=== PATIENT | male | born 1975 | race Caucasian/White ===

== ENCOUNTER → 2016-12-15 | Outpatient (CLI) | payer OTHER ==
--- NOTE | 2016-12-15 17:18 | US ---
EXAMINATION TYPE: US kidneys/renal and bladder DATE OF EXAM: 12/15/2016 COMPARISON: CT and US CLINICAL HISTORY: N20.0 Kidney Stone; Follow up per patient EXAM MEASUREMENTS: Right Kidney: 10.5 x 5.7 x 5.4 cm Left Kidney: 10.1 x 5.6 x 5.9 cm Post Void Residual Volume: 1.9 mL Right Kidney: multiple cortical cyst with largest at inferior pole = 2.5 x 2.6 x 2.5cm; upper pole hyperechoic focus with posterior shadowing = 0.6 x 0.4 x 0.6cm Left Kidney: mid inferior hyperechoic focus may be vessel wall calcification vs renal stone (0.7 x 0. 5 x 0.4cm); superior cortical cyst = 0.9 x 0.8 x 0.8cm; another hyperechoic focus is noted superior c ortex as parallel lines and may be vessel wall calcification. Bladder: wnl Bilateral Jets seen: Yes Normal Post Void Residual: Yes The 2.5 cm cyst in the lower pole of the right kidney has enlarged slightly from the previous study. Calcification within the left kidney is likely vascular in nature. IMPRESSION: 1. SIMPLE APPEARING BILATERAL RENAL CYSTS.
== END | disposition home or self-care (01) ==
LOC: RADUSWWP 16:10
PROVIDERS: ATTEND Urology
DX: N28.1 Cyst of kidney, acquired (principal)
CPT/HCPCS: 76770

== ENCOUNTER → 2020-01-03 | Outpatient (CLI) | payer OTHER ==
--- NOTE | 2020-01-03 17:47 | US ---
EXAMINATION TYPE: US venous doppler duplex UE LT DATE OF EXAM: 01/03/2020 COMPARISON: NONE CLINICAL HISTORY: 44-year-old male M79.632 L forearm Pain,M79.89 swelling. Left forearm pain x couple days, history of DVT, patient on blood thinners TECHNIQUE: Grayscale, color doppler, spectral doppler imaging performed of the deep veins of the upp er extremities. SIDE PERFORMED: Left FINDINGS: There is normal flow, compressibility and vascular waveforms. Left Arm: Appears negative for DVT IMPRESSION: No evidence for DVT within the left upper extremity.
== END | disposition home or self-care (01) ==
LOC: RADUSWWP 16:40
PROVIDERS: ATTEND Family Medicine
DX: M79.632 Pain in left forearm (principal); M79.89 Other specified soft tissue disorders